=== PATIENT | female | born 1985 | race Caucasian/White ===

== ENCOUNTER → 2022-01-02 | Outpatient (CLI) | payer OTHER ==
[~2022-01-02] MED LIST: ACTOS15 MG PO; ACTOS30 MG PO; BRILINTA90 MG PO; BUMEX 1MG TABLET1 MG PO; COZAAR25 MG PO; DIFLUCAN100 MG PO; ECOTRIN81 MG PO; ENTRESTO 24 MG1 EACH PO; FLEXERIL 10 MG10 MG PO; GABAPENTIN600 MG PO; HYDROCOD-HOMAT1 EACH PO; IMDUR ER TAB 3030 MG PO; JANUVIA50 MG PO; LEVAQUIN750 MG PO; LIPITOR TAB 2020 MG PO; LORTAB 5-325 M1 EACH PO; METFORMIN HCL500 M2 PO; NITROGLYCERIN0.4 MG SL; NITROSTAT0.4 MG SL; PENVEE K 500 M500 MG PO; SYNTHROID100 MCG PO; TOPROL XL25 MG PO; TOPROL XL50 MG PO; TORADOL 10 MG T10 MG PO; TRESIBA FL100 UNIT/1 SC; TYLENOL 325MG325 MG PO; VICTOZA 1818 MG/3 ML INJ
== END ==
LOC: HEART 5 14:26
DX: R06.02 Shortness of breath (principal); I34.0 Nonrheumatic mitral (valve) insufficiency; I51.9 Heart disease, unspecified
CPT/HCPCS: 93306

== ENCOUNTER 2022-01-21 21:08 | Emergency (ER) | payer OTHER ==
[2022-01-21 21:56] LABS: HEMOGLOBIN 12.5 gm/dl (12.3-15.3); RED BLOOD COUNT 3.94 M/UL (4.00-5.10); WHITE BLOOD COUNT 8.5 K/UL (4.5-11.0)
[2022-01-21 22:12] LABS: BUN/CREATININE RATIO 22 (0-10)
== END 2022-01-21 23:03 | disposition home or self-care (01) ==
LOC: ER1 21:08
PROVIDERS: Student in an Organized Health Care Education/Training Program
DX: S13.4XXA Sprain of ligaments of cervical spine, initial encounter (principal); M25.511 Pain in right shoulder; R07.9 Chest pain, unspecified; M79.622 Pain in left upper arm; R40.2410 Glasgow coma scale score 13-15, unspecified time; I11.9 Hypertensive heart disease without heart failure; E11.9 Type 2 diabetes mellitus without complications; E66.9 Obesity, unspecified; Z95.0 Presence of cardiac pacemaker; V89.2XXA Person injured in unspecified motor-vehicle accident, traffic, initial encounter
CPT/HCPCS: 70450; 71045; 72125; 72128; 73030; 73060; 80053; 84703; 85025; 93005; 99284

== ENCOUNTER → 2022-03-03 | Outpatient (CLI) | payer OTHER | LOC: SLEEP 21:30 | DX: G47.33 Obstructive sleep apnea (adult) (pediatric) (principal); E11.42 Type 2 diabetes mellitus with diabetic polyneuropathy; E78.2 Mixed hyperlipidemia; E03.9 Hypothyroidism, unspecified; I10 Essential (primary) hypertension; Z71.9 Counseling, unspecified | CPT/HCPCS: 95810 ==